=== PATIENT | female | born 1940 | race Caucasian/White ===

== ENCOUNTER → 2019-05-01 | Outpatient (CLI) | payer MEDICARE, OTHER ==
--- NOTE | 2019-05-01 13:41 | Diagnostic Imaging Report ---
INDICATION: Post menopausal. COMPARISON: None. FINDINGS: AP Spine L1-L4: [BMD (g/cm2): 0.945] [T-Score: -2.1] [Z-Score: -0.5] [BMD Previous: na] [BMD % Change: na] LT Hip Neck: [BMD (g/cm2): 0.933] [T-Score: -0.8] [Z-Score: 1.2] LT Hip Total: [BMD (g/cm2):0.980] [T-Score:-0.2] [Z-Score: 1.5] [BMD Previous: na] [BMD % Change: na] RT Hip Neck: [BMD (g/cm2):0.992] [T-Score:-0.3] [Z-Score:1.6] RT Hip Total: [BMD (g/cm2):1.021] [T-score:0.1] [Z-Score:1.8] [BMD Previous:na] [BMD % Change:na] *Indicates significant change from prior examination based on 95% confidence level. World Health Organization criteria for BMD interpretation classify patients as Normal (T-score at or above -1.0), Osteopenic (T-score between -1.0 and -2.5) or Osteoporotic (T-score at or below -2.5). LIMITATIONS AND MODIFICATION: None. FRACTURE RISK (FRAX SCORE): The ten year probability of (%): Major Osteoporotic Fracture: [na] Hip Fracture: [na] IMPRESSION: 1. Osteopenia (Low bone mass). 2. Baseline examination. 3. See below National Osteoporosis Foundation guidelines on when to potentially initiate pharmacologic therapy. Based on the National Osteoporosis Foundation Guidelines, pharmacologic treatment should be initiated in any of the following, unless clinical conditions suggest otherwise: * Any patient with prior fragility fracture of the hip or vertebrae. A spine fracture indicates 5X risk for subsequent spine fracture and 2X risk for subsequent hip fracture. * Osteoporosis (T-score <-2.5). * Postmenopausal women and men age 50 and older with low bone mass/osteopenia (T-score between -1.0 and -2.5) by DXA and 10-year major osteoporotic fracture greater than 20% or a 10-year probability of hip fracture greater than 3%. These fracture risks are supplied above in the FRAX score, if applicable. * Clinician judgement and/or patient preferences may indicate treatment for people with 10-year fracture probabilities above or below these levels. Dictated by: Dictated on workstation # [id number]
== END ==
LOC: RAD 12:14
PROVIDERS: ATTEND Internal Medicine
DX: M85.88 Other specified disorders of bone density and structure, other site (principal); Z78.0 Asymptomatic menopausal state
CPT/HCPCS: 77080

== ENCOUNTER → 2019-09-06 | Outpatient (CLI) | payer MEDICARE, OTHER ==
--- NOTE | 2019-09-06 14:06 | Diagnostic Imaging Report ---
EXAMINATION: Chest 2 view HISTORY: Evaluate for pneumonia. Cough and congestion for the past 2 weeks. COMPARISON: None available. FINDINGS: The lung volumes are normal. Prominent interstitial markings are seen in the perihilar regions bilaterally. No consolidative opacities. No large pleural effusion or pneumothorax is seen. The cardiomediastinal silhouette is normal in size and contour. No acute osseous abnormality is seen. IMPRESSION: 1. Prominent interstitial markings in the perihilar regions, which may represent viral infection. Bronchitis/bronchiolitis can also have this appearance. No focal consolidations. Dictated by: Dictated on workstation # [id number]
== END ==
LOC: RAD 10:36
PROVIDERS: ATTEND Nurse Practitioner
DX: J18.9 Pneumonia, unspecified organism (principal)
CPT/HCPCS: 71046

== ENCOUNTER → 2019-09-11 | Outpatient (CLI) | payer MEDICARE, OTHER ==
--- NOTE | 2019-09-11 16:25 | Diagnostic Imaging Report ---
INDICATION: Pneumonia. TIME OF EXAMINATION: 3:42 PM. COMPARISON: Correlation is made with the prior chest from 09/06/2019. FINDINGS: The heart size is normal. The pulmonary vascularity is unremarkable. The lungs are clear. No infiltrate, effusion, or pneumothorax is detected. IMPRESSION: No acute cardiopulmonary process is detected. Dictated by: Dictated on workstation # [id number]
== END ==
LOC: RAD 15:27
PROVIDERS: ATTEND Nurse Practitioner
DX: J18.9 Pneumonia, unspecified organism (principal)
CPT/HCPCS: 71046

== ENCOUNTER → 2019-12-27 | Outpatient (CLI) | payer MEDICARE, OTHER ==
--- NOTE | 2019-12-27 11:30 | Diagnostic Imaging Report ---
INDICATION: Left knee injury with pain. FINDINGS: AP, oblique, and lateral views of the left knee reveal moderate narrowing of the medial compartment of the knee joint. There is meniscal chondrocalcinosis. There is mild joint fluid present as well. No acute fracture or malalignment is identified. IMPRESSION: Knee joint effusion with degenerative changes, most pronounced in the medial compartment. No definite acute osseous abnormality is identified. Dictated by: Dictated on workstation # [id number]
== END ==
LOC: RAD 10:52
PROVIDERS: ATTEND Physician Assistant
DX: M25.462 Effusion, left knee (principal); M17.12 Unilateral primary osteoarthritis, left knee
CPT/HCPCS: 73562

== ENCOUNTER → 2020-01-07 | Outpatient (CLI) | payer MEDICARE, OTHER ==
--- NOTE | 2020-01-07 11:46 | Diagnostic Imaging Report ---
PROCEDURE: MRI left joint lower extremity without contrast. TECHNIQUE: Multiplanar, multisequence non contrast-enhanced MRI of the left lower extremity was accomplished. INDICATION: Left knee pain. COMPARISON: Radiographs from 12/27/2019. FINDINGS: No acute fracture is seen in the left knee. There is a small left knee joint effusion. Alignment is normal. There is mild bone marrow edema at the peripheral medial compartment. The articular cartilage in the patellofemoral compartment demonstrates mild thinning and surface irregularity medially. The articular cartilage in the medial compartment demonstrates marked thinning and surface irregularity with small full-thickness fissures. The articular cartilage in the lateral compartment demonstrates mild thinning and heterogeneity. There is a horizontal tear of the medial meniscus at the posterior horn extending into the body. The lateral meniscus appears intact. The anterior and posterior cruciate ligaments are intact. The medial collateral ligament appears intact. Underlying edema is thought to be due to the meniscal pathology. The lateral collateral ligamentous complex is intact. The extensor mechanism is intact. The medial and lateral retinacula are intact. IMPRESSION: 1. Tearing of the medial meniscus in the left knee. 2. Jxgf-yq-pxuzvayq degenerative changes and cartilage loss in the left knee, most pronounced in the medial compartment. 3. Small left knee joint effusion. Dictated by: Dictated on workstation # [id number]
== END ==
LOC: RAD 09:01
PROVIDERS: ATTEND Physician Assistant
DX: S83.242A Other tear of medial meniscus, current injury, left knee, initial encounter (principal); M17.12 Unilateral primary osteoarthritis, left knee; M25.462 Effusion, left knee; S83.32XA Tear of articular cartilage of left knee, current, initial encounter; X58.XXXA Exposure to other specified factors, initial encounter
CPT/HCPCS: 73721

== ENCOUNTER → 2020-04-15 | Outpatient (CLI) | payer MEDICARE, OTHER ==
--- NOTE | 2020-04-18 16:13 | Diagnostic Imaging Report ---
INDICATION: Routine screening. COMPARISON is made with prior mammogram from 01/15/2010. 2-D and 3-D bilateral screening mammography was performed with CAD. Both breasts are heterogeneously dense, limiting the sensitivity of mammography. The parenchymal pattern is stable. No mass or malignant appearing microcalcifications are seen. Axillae are unremarkable. IMPRESSION: BI-RADS Category 1 No mammographic features suspicious for malignancy are identified. ACR BI-RADS Category 1: Negative. Result letter will be mailed to the patient. Note: At least 10% of breast cancer is not imaged by mammography. Dictated by: Dictated on workstation # [id number]
== END ==
LOC: RAD 14:00
PROVIDERS: ATTEND Physician Assistant
DX: Z12.31 Encounter for screening mammogram for malignant neoplasm of breast (principal)
CPT/HCPCS: 77063; 77067

== ENCOUNTER 2020-05-06 11:00 | Outpatient (RCR) | payer MEDICARE, OTHER ==
[2020-07-30] MEDS ORDERED: ASPI-1238 PO (07:56)
[2020-07-30] MEDS ORDERED: CHOL500050 PO (07:56)
[2020-07-30] MEDS ORDERED: [UNRECOGNIZED DRUG - OTHER] PO (07:56)
[2020-07-30] MEDS ORDERED: AMLO-250 PO (07:56)
[2020-07-30] MEDS ORDERED: COQ PO (07:56)
[2020-07-30] MEDS ORDERED: MTP25TSR PO (07:56)
[2020-07-30] MEDS ORDERED: CALC-696 PO (07:56)
[2020-07-30] MEDS ORDERED: ULTIMATE OMEGA PO (07:56)
[2020-07-30] MEDS ORDERED: ESCI10TA64 PO (07:56)
[2020-07-30] MEDS ORDERED: PRAV40TA2 PO (07:56)
== END 2020-08-04 | disposition home or self-care (01) ==
LOC: CARD 11:00
PROVIDERS: ATTEND Internal Medicine
DX: R00.2 Palpitations (principal)
CPT/HCPCS: 93225; 93226

== ENCOUNTER → 2020-06-06 | Outpatient (CLI) | payer MEDICARE, OTHER | LOC: CARD 12:52 | PROVIDERS: ATTEND Internal Medicine Cardiovascular Disease | DX: I10 Essential (primary) hypertension (principal); I35.1 Nonrheumatic aortic (valve) insufficiency | CPT/HCPCS: 93306 ==

== ENCOUNTER 2020-07-16 14:13 | Emergency (ER) | payer MEDICARE ==
[~2020-07-16] VITALS: Ht 154.9 cm; Wt 70.3 kg
[2020-07-16 14:59] LABS: BASOPHILS % (AUTO) 0 % (0-10); EOSINOPHILS # (AUTO) 0.1 10^3/uL (0.0-0.3); EOSINOPHILS % (AUTO) 1 % (0-10); HEMATOCRIT 40 % (35-52); HEMOGLOBIN 14.3 g/dL (11.5-16.0); LYMPHOCYTES % (AUTO) 18 % (12-44); MEAN CORPUSCULAR HEMOGLOBIN 34 pg (25-34); MEAN CORPUSCULAR HGB CONC 35 g/dL (32-36); MEAN CORPUSCULAR VOLUME 96 fL (80-99); MEAN PLATELET VOLUME 10.5 fL (9.0-12.2); MONOCYTES # (AUTO) 0.1 X 10^3 (0.0-1.0); MONOCYTES % (AUTO) 3 % (0-12); NEUTROPHILS # (AUTO) 4.3 X 10^3 (1.8-7.8); NEUTROPHILS % (AUTO) 77 % (42-75); PLATELET COUNT 211 10^3/uL (130-400); WHITE BLOOD COUNT 5.6 10^3/uL (4.3-11.0)
[2020-07-16 15:00] LABS: CALCIUM 9.3 MG/DL (8.5-10.1); CREATININE SERUM 1.03 MG/DL (0.60-1.30); POTASSIUM 3.7 MMOL/L (3.6-5.0)
--- NOTE | 2020-07-16 15:10 | ED General ---
General Chief Complaint: Abdominal/GI Problems Stated Complaint: CP Nursing Triage Note: PT BROUGHT IN BY [facility] FROM HOME WITH COMPLAINT OF SYNCOPAL EPISODE. PT STATES SHE HAD A STRESS TEST THIS MORNING AND GOT HOME AROUND 1100. STATES HAD A SALAD FOR LUNCH AND NOT LONG AFTER EATING BECAME NUASEATED. STATES SHE HAD DIARRHEA AND VOMITING. PER , PT FAINTED AND HIT BACK OF HEAD ON [place]. PT DOES NOT REMEMBERING FALL. STATES SHE REMEMBERS FEELING FAINT. PT IS A&O ON ARRIVAL TO ER Nursing Sepsis Screen: No Definite Risk Source of Information: Patient Exam Limitations: No Limitations History of Present Illness Date Seen by Provider: Jul 16, 2020 Time Seen by Provider: 14:30 Initial Comments Patient is a 79-year-old female who presents to the emergency department today after a syncopal episode and an episode of nausea vomiting and diarrhea. Patient states that she had a stress test, chemical at 8 AM this morning. She states she did well she had one episode of a brief period of tachycardia that she states spontaneously resolved. She states she was able to wait the 40 minutes after her stress test uneventfully and able to drive home. After she got home she was hungry and she ate a salad. She states while she was eating her salad she had a sudden urge to go to the bathroom she became acutely nauseated and had significant amounts of diarrhea and vomiting. Patient was able to leave the bathroom and walk into the kitchen where she subsequently had a syncopal event. Her witnessed this event and states that she actually passed out twice. Patient states that her states that she hit her head. The patient has no complaints of headache, head injury, neck pain, chest pain, abdominal pain. Her symptoms of nausea vomiting and diarrhea have completely resolved. Patient denies any bad food exposures. She states that she made a stirfry for dinner last night. Nobody in the house is sick. She denies any complaints of fever, chills, shortness of breath or cough. No problems with urination. All other review of systems were reviewed and negative except as stated above. Timing/Duration: 1-3 Hours Severity: Moderate Associated Systoms: Denies Symptoms Allergies and Home Medications Allergies Coded Allergies: No Known Drug Allergies (Unverified , 07/16/20) Patient Home Medication List Home Medication List Reviewed: Yes Review of Systems Review of Systems Constitutional: see HPI EENTM: no symptoms reported Respiratory: no symptoms reported Cardiovascular: no symptoms reported Gastrointestinal: no symptoms reported Genitourinary: no symptoms reported Musculoskeletal: no symptoms reported Skin: no symptoms reported Psychiatric/Neurological: Other (syncope) All Other Systems Reviewed Negative Unless Noted: Yes Past Mdfhvmo-Slewxn-Bvclpn Hx Patient Social History Alcohol Use: Occasionally Uses Smoking Status: Never a Smoker Recent Infectious Disease Expo: No Recent Hopitalizations: No Immunizations Up To Date Tetanus Booster (TDap): Unknown Seasonal Allergies Seasonal Allergies: No Past Medical History Surgeries: Yes Section, Hysterectomy, Orthopedic Respiratory: No Cardiac: Yes High Cholesterol, Hypertension 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 oz. kg; 29.00 BMI Method: General Appearance: No Apparent Distress, WD/WN Eyes: Bilateral Eye Normal Inspection, Bilateral Eye PERRL, Bilateral Eye EOMI HEENT: PERRL/EOMI Respiratory: Lungs Clear, Normal Breath Sounds, No Accessory Muscle Use, No Respiratory Distress Cardiovascular: Regular Rate, Rhythm Gastrointestinal: Normal Bowel Sounds, Non Tender, Soft Back: Normal Inspection Extremity: Normal Capillary Refill, Normal Inspection, Normal Range of Motion Neurologic/Psychiatric: Alert, Oriented x3, No Motor/Sensory Deficits, Normal Mood/Affect, diet technician registered II-XII Norm as Tested Skin: Normal Color, Warm/Dry Progress/Results/Core Measures Suspected Sepsis Recent Fever Within 48 Hours: No Infection Criteria Present: None New/Unexplained Altered Menta: No Sepsis Screen: No Definite Risk SIRS Temperature: Pulse: 63 Respiratory Rate: 26 Laboratory Tests 07/16/20 14:27: White Blood Count 5.6 Blood Pressure 131 /68 Mean: 89 Laboratory Tests 07/16/20 14:27: Creatinine 1.03, Platelet Count 211 Results/Orders Lab Results Laboratory Tests Test 07/16/20 14:27 Range/Units White Blood Count 5.6 4.3-11.0 10^3/uL Red Blood Count 4.21 3.80-5.11 10^6/uL Hemoglobin 14.3 11.5-16.0 g/dL Hematocrit 40 35-52 % Mean Corpuscular Volume 96 80-99 fL Mean Corpuscular Hemoglobin 34 25-34 pg Mean Corpuscular Hemoglobin Concent 35 32-36 g/dL Red Cell Distribution Width 13.2 10.0-14.5 % Platelet Count 211 130-400 10^3/uL Mean Platelet Volume 10.5 9.0-12.2 fL Immature Granulocyte % (Auto) 1 % Neutrophils (%) (Auto) 77 H 42-75 % Lymphocytes (%) (Auto) 18 12-44 % Monocytes (%) (Auto) 3 0-12 % Eosinophils (%) (Auto) 1 0-10 % Basophils (%) (Auto) 0 0-10 % Neutrophils # (Auto) 4.3 1.8-7.8 X 10^3 Lymphocytes # (Auto) 1.0 1.0-4.0 X 10^3 Monocytes # (Auto) 0.1 0.0-1.0 X 10^3 Eosinophils # (Auto) 0.1 0.0-0.3 10^3/uL Basophils # (Auto) 0.0 0.0-0.1 10^3/uL Immature Granulocyte # (Auto) 0.1 0.0-0.1 10^3/uL Sodium Level 139 135-145 MMOL/L Potassium Level 3.7 3.6-5.0 MMOL/L Chloride Level 103 98-107 MMOL/L Carbon Dioxide Level 26 21-32 MMOL/L Anion Gap 10 5-14 MMOL/L Blood Urea Nitrogen 23 H 7-18 MG/DL Creatinine 1.03 0.60-1.30 MG/DL Estimat Glomerular Filtration Rate 52 BUN/Creatinine Ratio 22 Glucose Level 140 H 70-105 MG/DL Calcium Level 9.3 8.5-10.1 MG/DL My Orders Orders - STACEY SUMNER MD Cbc With Automated Diff (07/16/20 14:46) Basic Metabolic Panel (07/16/20 14:46) Vital Signs/I&O 07/16/20 14:16 Temp 36.2 Pulse 63 Resp 26 B/P (MAP) 131/68 (89) Pulse Ox 95 O2 Delivery Room Air Capillary Refill : Less Than 3 Seconds Blood Pressure Mean: 89 Progress Note : Time: 15:12 Progress Note 79-year-old with a syncopal event at home x2. Evaluation today includes a physical exam, CBC, BM 7. Patient states that she feels completely asymptomatic at this time. All of her symptoms have resolved. Question delayed response to the nuclear medicine used in her stress test versus some type of bad food exposure. In either case the patient symptoms have occurred 100% improved and she feels better. Labs are reviewed and are unremarkable. All questions are sought and answered. Patient is comfortable with discharge.. Patient will be discharged home. Departure Impression Primary Impression: Syncope Qualified Codes: R55 - Syncope and collapse Additional Impression: Nausea and vomiting Qualified Codes: R11.2 - Nausea with vomiting, unspecified Disposition: 01 HOME, SELF-CARE Condition: Stable Departure-Patient Inst. Decision time for Depature: 15:14 Referrals: MARIAM MEJIA MD (PCP/Family) Primary Care Physician Patient Instructions: Syncope (Fainting) Add. Discharge Instructions: Continue your home daily medications as previously prescribed. Drink plenty of fluids to stay well-hydrated. Follow-up with your primary care physician and Dr. Ortega as scheduled. Return to the emergency room for any return of symptoms, worsening symptoms or new emergent complaints. STACEY SUMNER MD Jul 16, 2020 15:10
[2020-07-16 16:08] VITALS: BP 139/67
== END 2020-07-16 16:08 | disposition home or self-care (01) ==
LOC: EDUNIT# 14:13 → ER 14:15
DX: R55 Syncope and collapse (principal); R11.2 Nausea with vomiting, unspecified
CPT/HCPCS: 36415; 80048; 85025; 93005

== ENCOUNTER → 2020-07-16 | Outpatient (CLI) | payer MEDICARE ==
[~2020-07-16] VITALS: Ht 152 cm; Wt 70.0 kg
[~2020-07-16] MED LIST: CATHETER FLUSH 10 ML SYR IV PRN; REGADENOSON 0.4 MG/5 ML SYR (LEXISCAN) IV ONE
[2020-07-16 09:08] VITALS: BP 160/63
--- NOTE | 2020-07-16 12:00 | Cardiology Stress Test Report ---
Stress Test Report Date of Procedure/Referring: Date of Procedure: Jul 16, 2020 PCP Indira Ortega MD Admitting Physician Constantine Corrales MD Indications: Palpitation Baseline Heart Rate: 51 Baseline Blood Pressure: Blood Pressure Systolic: 160 Blood Pressure Diastolic: 63 Baseline Vitals Vital Signs Date Time Temp Pulse Resp B/P (MAP) Pulse Ox O2 Delivery O2 Flow Rate FiO2 07/16/20 09:08 56 18 160/63 (95) 99 Room Air Baseline EKG: Baseline EKG: normal sinus rhythm Summary After explaining the procedure to the patient, she signed a consent and then brought to the stress nuclear laboratory. Patient received 0.4 mg Lexiscan for stress test, ECG, heart rate and blood pressure were monitored continuously. Resting and stress dose of radio tracer were injected, imaging was acquired and reviewed in short axis, horizontal long axis and vertical long axis views. TID: 1.07 SSS: 5 SDS: 5 EF: 73 1. Patient tolerated Lexiscan well 2. Breast attenuation with mild decrease uptake in the mid to apical anterior wall with subtle reversibility. Probably due to the breast attenuation. Equivocal test 3. Normal left ventricular size, EF 73 percent INDIRA ORTEGA MD Jul 16, 2020 12:00
== END ==
LOC: CARD 08:15
PROVIDERS: ATTEND Internal Medicine Cardiovascular Disease
DX: R00.2 Palpitations (principal)
CPT/HCPCS: 78452; 93017; A9502

== ENCOUNTER 2020-07-30 09:00 | Day surgery (SDC) | payer MEDICARE ==
[2020-07-30] VITALS (9 sets, daily range): BP systolic 106–164; BP diastolic 51–77
[~2020-07-30] VITALS: Ht 155 cm; Wt 73.0 kg
[2020-07-30 07:32] LABS: HEMOGLOBIN 14.9 g/dL (11.5-16.0); WHITE BLOOD COUNT 7.4 10^3/uL (4.3-11.0)
[2020-07-30 07:42] LABS: PROTHROMBIN TIME PATIENT 13.8 SEC (12.2-14.7)
[2020-07-30 07:45] LABS: ALANINE AMINOTRANSFERASE 22 U/L (0-55); ALBUMIN 4.2 GM/DL (3.2-4.5); ALKALINE PHOSPHATASE 51 U/L (40-136); BUN/CREATININE RATIO 25; CALCIUM 9.4 MG/DL (8.5-10.1); CARBON DIOXIDE 22 MMOL/L (21-32); CHLORIDE 105 MMOL/L (98-107); CHOLESTEROL 224 MG/DL (< 200); CREATININE SERUM 0.83 MG/DL (0.60-1.30); GFR ESTIMATED > 60; GLUCOSE 115 MG/DL (70-105); HDL CHOLESTEROL 95 MG/DL (40-60); POTASSIUM 3.9 MMOL/L (3.6-5.0); SODIUM 140 MMOL/L (135-145); TOTAL PROTEIN 6.9 GM/DL (6.4-8.2); TRIGLYCERIDES 109 MG/DL (<150); VLDL CHOLESTEROL 22 MG/DL (5-40)
--- NOTE | 2020-07-30 07:59 | Diagnostic Imaging Report ---
INDICATION: Abnormal stress test. Chest pain. Hypertension Upright chest shows normal heart size and vascularity. The lungs are clear. There is no effusion or pneumothorax. There is no acute bony abnormality. IMPRESSION: No acute abnormality is seen with no significant change from 09/11/2019. Dictated by: Dictated on workstation # [id number]
--- NOTE | 2020-07-30 08:05 | NUR ---
SPOKE WITH THE PT (SHE HAS HOME MEDS WITH HER) AND WENT THRU THE EXT MED HISTORY TO COMPLETE THE MED REC PRAVASTATIN 40MG WAS LAST FILLED 03-24-2020 #90/90DS- I DOCUMENTED THE PAST DUE FILL ON THE MED REC OTC MEDS: DIGEST ULTIMATE ULTIMATE OMEGA + COQ10 ASPIRIN 81MG CITRACAL +D MAX VIT D3
--- NOTE | 2020-07-30 08:39 | Cardiac Procedure Note-CS/ASA ---
Pre-Procedure Note Pre-Op Procedure Note H&P Reviewed The H&P was reviewed, patient examined and no changes noted. Date H&P Reviewed: Jul 30, 2020 Time H&P Reviewed: 08:39 Conscious Sedation Pre-Proced Time 08:39 ASA Score 3 For ASA 3 and 4: Consider anesthesia and medical clearance. Also, for patients with a history of failed moderate sedation consider anesthesia. Airway Lungs Heart ASA score ASA 1: a normal healthy patient ASA 2: a patient with a mild systemic disease (mid diabetes, controlled hypertension, obesity x ASA 3: a patient with a severe systemic disease that limits activity (angina, COPD, prior Myocardial infarction) ASA 4: a patient with an incapacitating disease that is a constant threat to life (CHF, renal failure) ASA 5: a moribund patient not expected to survive 24 hrs. (ruptured aneurysm) ASA 6: a declared brain- patient whose organs are being harvested. For emergent operations, add the letter E after the classification Mallampati Classification Grade 3 Sedation Plan Analgesia, Amnesia, Plan communicated to team members, Discussed options with patient/fam, Discussed risks with patient/fam The patient is an appropriate candidate to undergo the planned procedure, sedation, and anesthesia. The patient immediately re-assessed prior to indication. INDIRA MEDLEY MD Jul 30, 2020 08:39
[~2020-07-30 09:00] MED LIST changes: +AMLO-250 PO; +ASPI-1238 PO; +CALC-696 PO; -CATHETER FLUSH 10 ML SYR IV PRN; +CHOL500050 PO; +COQ PO; +ESCI10TA64 PO; +HEParin (CATH LAB) 2,000 ML IV ONE; +HEParin 1000 UNIT/ML (10ML VIAL) FOR BOLUS ONE; +LIDOCAINE 1% INJ 20 ML 20 ML VIAL ONE; +MIDAZOLAM 5 MG/5 ML (VERSED) VIAL ONE; +MTP25TSR PO; +NITRO DRIP 25000 MCG/D5W 250 ML IV ONE; +NS IV 1000 ML 1,000 ML IV SCH; +NS IV 1000 ML 1,000 ML ONE; +PRAV40TA2 PO; -REGADENOSON 0.4 MG/5 ML SYR (LEXISCAN) IV ONE; +ULTIMATE OMEGA PO; +VERAPAMIL 5 MG/2 ML (CALAN) VIAL IV ONE; +[UNRECOGNIZED DRUG - OTHER] PO; +fentaNYL INJECTION 100 MCG/2 ML AMP ONE
[2020-07-30] MEDS ORDERED: NS IV 1000 ML 1,000 ML IV SCH (09:15)
--- NOTE | 2020-07-30 09:16 | Discharge Inst-Post CATH ---
Discharge Inst-CATH/EP Problems Reviewed?: Yes Post Cardiac Cath/EP D/C Inst Follow Up/Plan Appointment with Dr. MEDLEY's office in 2-4 weeks <b>CARDIAC CATH/EP PROCEDURE DISCHARGE INSTRUCTIONS</b> ACTIVITY * Go Home directly and rest. * Limit activity of the leg (or wrist if it was used) for 7 days including aerobics, swimming, jogging, bicycling, etc. * Restrict stair-climbing for 7 days if possible, if not, climb up with your non-cath leg, then bring together on the same step. * Avoid lifting, pushing, pulling or excessive movement of the affected extremity for 7 days. * Customary sexual activity may be resumed after 2 days-use caution not to use a position that strains or causes pain to the affected extremity. * No driving for 24 hours. * NO SMOKING. * Avoid straining for bowel movements for 7 days. * Gentle walking on level ground is allowed. * Returning to work will depend on the type of procedure and the results. Your doctor will discuss this with you. CALL YOUR DOCTOR FOR ANY OF THE FOLLOWING: *If bleeding from the puncture site occurs- Apply gentle pressure to site with clean cloth and call your doctor or EMS. * If a knot or lump forms under the skin, increases in size, or causes pain. * If bruising appears to be worsening or moving further down your leg instead of disappearing. * Temperature above 101 F. CARE OF YOUR GROIN INCISION; * Bruising or purple discoloration of the skin near the puncture site is common. * You may shower only, no bathtub bathing for 5 days. Be careful to avoid slipping as your leg may feel stiff. * If a closure device was used on your femoral artery, please see the attached guide regarding care of the device and your leg. * Leave dressing on FOR 24 hours. CARE OF YOUR WRIST INCISION; * Bruising or purple discoloration of the skin near the puncture site is common. * You may shower. * DO NOT submerge wrist. * Leave dressing on FOR 24 hours. INDIRA MEDLEY MD Jul 30, 2020 9:16 am
--- NOTE | 2020-07-30 09:21 | Cardiac Cath Report ---
Cardiac Cath Report Physician (s)/Insurance Loss Adjuster (s) Physician INDIRA MEDLEY MD Pre-Procedure Diagnosis Pre-Procedure Diagnosis: coronary artery disease Post-Procedure Note Procedure Start Date: Jul 30, 2020 Name of Procedure: Left heart catheterization Findings/Procedure Note PROCEDURE NOTE: 80-year-old lady with history of hypertension, hyperlipidemia, has been having chest pain, had an abnormal stress test, scheduled for cardiac catheterization possible PTCA. After explaining the procedure to the patient, all pros and cons were explained, all questions were answered. The patient signed the consent and then she was placed on the cardiac catheterization laboratory. Groin was prepped SL fashion local anesthesia was used. Sheath placed in the right radial artery, [place] catheter was advanced to the left ventricular cavity pressure was measured pullback LV to aorta was done, no left ventriculogram was done. Engaged the left main coronary system and angiogram was done then turned to the right coronary system and engaged it and right coronary angiogram was done. At the end of the procedure the sheath was removed. Vascular band was used FINDINGS: Hemodynamics LV 122/23, end-diastolic pressure 23 Aorta 118/64 mean of 87 ANATOMY: Left Main is free of obstructive disease Left Anterior Descending has mild disease nonobstructive disease tapered down into a smaller artery distally Left Circumflex is slightly tortuous with mild disease no obstructive disease Right Coronory Artery is dominant artery with no obstructive disease LV Gram was not done, pressure was measured CONCLUSION: 1. Mild coronary artery disease, nonobstructive disease 2. Slightly elevated left ventricular end-diastolic pressure DISCUSSION AND RECOMMENDATION: No significant obstructive disease, abnormal stress test is probably due to extracardiac attenuation, medical therapy is recommended Anesthesia Type: Conscious Sedation Estimated blood loss (mL): 10 ml Contrast Amount: 27 ml Total Radiation Dose: 106 mGy Post-Procedure Diagnosis Post-operative diagnosis: Chest pain Coronary artery disease Hypertension Hyperlipidemia INDIRA MEDLEY MD Jul 30, 2020 09:21
== END 2020-07-30 12:00 ==
LOC: CATH 09:00 → SDC 09:33 → CATH 12:00
PROVIDERS: ATTEND Internal Medicine Cardiovascular Disease
DX: I25.10 Atherosclerotic heart disease of native coronary artery without angina pectoris (principal); I49.3 Ventricular premature depolarization; I47.1 Supraventricular tachycardia; I10 Essential (primary) hypertension; E78.2 Mixed hyperlipidemia; Z79.82 Long term (current) use of aspirin; Z79.899 Other long term (current) drug therapy
CPT/HCPCS: 71045; 80053; 80061; 85027; 85610; 85730; 87081; 93458; C1894; 36415

== ENCOUNTER → 2021-02-25 | Outpatient (CLI) | payer MEDICARE, OTHER ==
[~2021-02-25] MED LIST changes: +ESCI-2 PO; -ESCI10TA64 PO; -HEParin (CATH LAB) 2,000 ML IV ONE; -HEParin 1000 UNIT/ML (10ML VIAL) FOR BOLUS ONE; -LIDOCAINE 1% INJ 20 ML 20 ML VIAL ONE; -MIDAZOLAM 5 MG/5 ML (VERSED) VIAL ONE; -NITRO DRIP 25000 MCG/D5W 250 ML IV ONE; -NS IV 1000 ML 1,000 ML IV SCH; -NS IV 1000 ML 1,000 ML ONE; -VERAPAMIL 5 MG/2 ML (CALAN) VIAL IV ONE; -fentaNYL INJECTION 100 MCG/2 ML AMP ONE
--- NOTE | 2021-02-25 15:57 | Diagnostic Imaging Report ---
EXAMINATION: CHEST (PA AND LATERAL). CLINICAL INDICATION: 80-year-old female, shortness of breath. COMPARISON: September 11, 2019. FINDINGS: The heart size and mediastinal contours are unchanged. There is no identified pneumothorax. There is no pleural effusion. There is no identified focal airspace consolidation. There are anchors in the left humeral head. IMPRESSION: No identified acute cardiopulmonary abnormality. Dictated by: Dictated on workstation # [id number]
== END ==
LOC: RAD 15:18
PROVIDERS: ATTEND Nurse Practitioner Family
DX: E78.49 Other hyperlipidemia (principal); J17 Pneumonia in diseases classified elsewhere
CPT/HCPCS: 71046

== ENCOUNTER → 2021-04-13 | Outpatient (CLI) | payer MEDICARE, OTHER ==
--- NOTE | 2021-04-13 15:23 | Diagnostic Imaging Report ---
INDICATION: Patient reports lump along the right lateral lower leg. FINDINGS: Real-time imaging shows homogeneous appearing subcutaneous fat in the region of concern. There are no encapsulated lipomas. The underlying muscles appear homogeneous. 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 Dictated by: Dictated on workstation # [id number]
== END ==
LOC: RAD 12:30
PROVIDERS: ATTEND Internal Medicine
DX: R22.41 Localized swelling, mass and lump, right lower limb (principal)
CPT/HCPCS: 76881

== ENCOUNTER → 2021-04-22 | Outpatient (CLI) | payer MEDICARE, OTHER ==
--- NOTE | 2021-04-23 14:54 | Diagnostic Imaging Report ---
EXAMINATION: Digital mammogram bilateral screening with CAD. INDICATION: Screening. COMPARISON: This study is compared to the prior exams of 04/15/2020 and 01/15/2010. At this time, there are no current complaints. FINDINGS: The fibroglandular tissue in both breasts is heterogeneously dense. This does limit the sensitivity of this exam. Overall, there does not appear to have been any significant change when compared to the prior study. No primary or secondary sign of malignancy is noted. IMPRESSION: There is no radiographic evidence for malignancy. ACR BI-RADS Category 1: Negative. Result letter will be mailed to the patient. Note: At least 10% of breast cancer is not imaged by mammography. Dictated by: Dictated on workstation # [id number]
== END ==
LOC: RAD 11:15
PROVIDERS: ATTEND Internal Medicine
DX: Z12.31 Encounter for screening mammogram for malignant neoplasm of breast (principal)
CPT/HCPCS: 77063; 77067

== ENCOUNTER → 2022-04-23 | Outpatient (CLI) | payer MEDICARE, OTHER ==
--- NOTE | 2022-04-26 10:21 | Diagnostic Imaging Report ---
INDICATION: Routine screening. COMPARISON: 04/22/2021 and 04/15/2020. TECHNIQUE: 2D and 3D bilateral screening mammography was performed with CAD. FINDINGS: Scattered fibroglandular densities are identified bilaterally. The parenchymal pattern is stable. No mass or malignant-appearing microcalcifications are seen. The axillae are unremarkable. IMPRESSION: No mammographic features suspicious for malignancy are identified. ACR BI-RADS Category 1: Negative. Result letter will be mailed to the patient. Note: At least 10% of breast cancer is not imaged by mammography. Dictated by: Dictated on workstation # [id number]
== END ==
LOC: RAD 14:30
PROVIDERS: ATTEND Internal Medicine
DX: Z12.31 Encounter for screening mammogram for malignant neoplasm of breast (principal)
CPT/HCPCS: 77063; 77067

== ENCOUNTER → 2022-12-27 | Outpatient (CLI) | payer MEDICARE, OTHER ==
--- NOTE | 2022-12-27 14:38 | Diagnostic Imaging Report ---
INDICATION: I73.9, peripheral arterial occlusive disease. COMPARISON: None available. TECHNIQUE: Bilateral ankle to brachial indices were obtained. This includes segmental blood pressure results involving the bilateral ankles with plethysmography. FINDINGS: The right brachial systolic blood pressure is 142 mmHg while the left brachial systolic blood pressure is 136 mmHg. The right ankle systolic blood pressure within the right posterior tibial artery is 180 mmHg; therefore, the right ankle to brachial index is within normal limits at 1.27. The left ankle systolic blood pressure within the posterior tibial artery is 189 mmHg; therefore, the left ankle to brachial index is within normal limits at 1.33. Normal waveforms within the arterial structures within the distal bilateral lower extremities. IMPRESSION: Normal bilateral ankle to brachial indices as described above. Dictated by: Dictated on workstation # [id number]
== END ==
LOC: RAD 13:00
PROVIDERS: ATTEND Internal Medicine
DX: I73.9 Peripheral vascular disease, unspecified (principal)
CPT/HCPCS: 93922